=== PATIENT | female | born 1940 | race Caucasian/White ===

== ENCOUNTER → 2016-08-28 | Day surgery (SDC) | payer OTHER ==
--- NOTE | 2016-08-25 12:54 | History & Physical Pre-Op ---
General Information and HPI History of Present Illness: Lauryn is a 75-year-old female with a long-standing and worsening complaint of left plantar fasciitis. The patient has undergone an extended course of conservative care, including shoe gear and activity modification, rest, immobilization and courses of NSAIDs. None of this is yielded her any significant relief. The patient presents today for preoperative surgical consultation. Allergies/Medications Allergies: Coded Allergies: No Known Allergies (07/02/15) Home Med list Allopurinol 100 MG TABLET 1 TAB PO DAILY GOUT (Reported) Amlodipine Besylate 5 MG TABLET 1 TAB PO DAILY HTN (Reported) Labetalol HCl 100 MG TABLET 1 TAB PO BID HTN (Reported) Levothyroxine Sodium 75 MCG TABLET 1 TAB PO DAILY THYROID (Reported) Valsartan/Hydrochlorothiazide (Valsartan-Hctz 160-12.5 MG Tab) 160 MG-12.5 MG TABLET 1 TAB PO DAILY HTN (Reported) Past History Medical History Neurological: NONE EENT: NONE Cardiovascular: hypertension Respiratory: NONE Gastrointestinal: NONE Hepatic: NONE Renal: NONE Musculoskeletal: NONE Psychiatric: NONE Endocrine: hypothyroidism Blood Disorders: NONE Cancer(s): NONE SERVICE OPERATIONS MANAGER/Reproductive: NONE History of MRSA: No History of VRE: No History of CDIFF: No Surgical History Pertinent Surgical History: N Past Family/Social History Family History Relations & Conditions if any MOTHER (CHF at 79 year). SISTER (Colon Cancer Lymphoma Melanoma). Psychosocial History Services at Home None Functional Ability ADLs Independent: dressing, eating, toileting, bathing. Ambulation: independent IADLs Independent: shopping, housework, finances, food prep, telephone, transportation , medication admin. Review of Systems Review of Systems: Unremarkable except for that noted in history of present illness Exam & Diagnostic Data Physical Exam: Lungs clear bilaterally. Heart sounds rate and rhythm regular. Lower extremity physical exam demonstrates intact pedal pulses bilaterally. Pulses dorsalis pedis and posterior tibial arteries are palpable bilaterally. Patient without any sensory motor deficits. Deep tendon reflexes grossly intact. Patient noted to have significant pain with palpation to the plantar medial aspect of left heel. Negative Tinel sign noted with percussion of the posterior tibial nerve. Ankle range of motion noted to be diminished, especially in dorsiflexion. This is noted to improve with flexion of the knee. Assessment/Plan Assessment/Plan: Heel pain left with gastrocnemius equinus left. A lengthy discussion reviewing both surgical and conservative options was held the patient at bedside and the patient elects to go forward with surgery despite the risks. As Ranked By This Provider Problem List: 1. Plantar fascial fibromatosis
[~2016-08-28] VITALS: Ht 157.5 cm; Wt 68.0 kg
[~2016-08-28] MED LIST: ALLOPURINOL100 M1 PO; AMLODIPINE BESYL5 M1 PO; LABETALOL HCL100 M1 PO; LEVOTHYROXINE75 MCG PO; LISINOPRIL20 M1 PO; NORVASC10 M1 PO; VALSARTAN-HCTZ1 EAC1 PO
--- NOTE | 2016-08-28 11:18 | Operative Report ---
Operative/Inv Procedure Report Surgery Date: 08/28/16 Name of Procedure: 1 gastrocnemius recession left 2 plantar fasciotomy left 3 plantar fasciectomy left 4 intraoperative administration of ankle block anesthesia Pre-Operative Diagnosis: 1 gastrocnemius equinus left 2 chronic plantar fasciosis left Post-Operative Diagnosis: The same Estimated Blood Loss: scant Surgeon/Clinical Education Specialist: STEFFI SOMMERS DPM Anesthesia: moderate sedation, block Operative/Procedure Note Note: After obtaining informed consent the patient was brought to the operating room and placed on the operating table in the supine position. The patient was then securely fastened to the operating table utilizing safety belt. After administration of IV sedation, 10 mL of 0.5% Marcaine plain was infiltrated about the patient's left ankle. A well-padded calf tourniquet was placed about the patient's left upper calf. 2 g of Ancef were delivered intravenously times one dose. The left lower extremity was scrubbed prepped and draped in usual aseptic manner. Left lower extremity was elevated to examine to limb, which point the calf tourniquet was inflated to 250 mmHg. Attention was directed to the distal medial leg, where a linear incision was made 2 fingerbreadths distal to the medial have a gastrocnemius muscle. The skin was as a 15 blade and deepened subtenons tissues. The dissection was then carried down to the medial margin of the gastroc fascia, where an interval was developed between the peritenon and the fascia. The sural nerve was identified protected. A gastrocnemius recession was then performed. The deep tissues were then closed with 4-0 Vicryl and the skin edges reapproximated 4-0 nylon. Attention was then directed to the distal foot, where portals well-developed with a 62 K wire overlying the margin of the medial slip of the plantar fascia. The tissue was then ablated with 4 W of energy at 5 mm intervals along the symptomatic region of fascia. The dissection was then carried down to the medial margin of the fascia which was released from its origin on the medial tubercle calcaneal tuberosity. Skin edges reapproximated 4-0 Vicryl. The incision was then dressed with Xeroform followed by Island dressings and Coban. The patient was noted to tolerate both procedure and anesthesia well and the patient was transported from the operating room to recovery with vital signs stable best assess intact all digits left foot.
== END ==
LOC: STS 02:07
DX: M21.6X2 Other acquired deformities of left foot (principal); M72.2 Plantar fascial fibromatosis; M10.9 Gout, unspecified; I10 Essential (primary) hypertension; E03.9 Hypothyroidism, unspecified
CPT/HCPCS: J0131; J2001; J2250